=== PATIENT | female | born 1980 | race Caucasian/White ===

== ENCOUNTER 2017-04-16 11:00 | Day surgery (SDC) | payer BC ==
[2017-04-16] MEDS ORDERED: NALOXONE HCL INJ/PF 0.4 MG/1 ML SDV ONE (11:39)
[2017-04-16] MEDS ORDERED: MIDAZOLAM 2 MG/2 ML INJ ONE (11:39)
[2017-04-16] MEDS ORDERED: ONDANSETRON HCL INJ/PF 4 MG/2 ML SDV ONE (11:39)
[2017-04-16] MEDS ORDERED: DIPHENHYDRAMINE HCL 50 MG/ML VIAL ONE (11:39)
[2017-04-16] MEDS ORDERED: EPINEPHRINE INJ 1 MG/10 ML DISP.SYRIN ONE (11:40)
[2017-04-16] MEDS ORDERED: FLUMAZENIL INJ 0.5 MG/5 ML VIAL IV ONE (11:40)
[2017-04-16] MEDS ORDERED: GLUCAGON,HUMAN RECOMB 1 MG INJ ONE (11:40)
[2017-04-16] MEDS: MIDAZOLAM 2 MG/2 ML INJ ONE ×2 (12:17→12:21)
[2017-04-16] MEDS: FENTANYL CITRATE INJ/PF 100 MCG/2 ML AMPUL ONE ×2 (12:19→12:23)
--- NOTE | 2017-04-16 12:33 | Operative Report ---
Operative Report DATE OF SURGERY: 04/16/17 Operative Report: The risks benefits and alternatives of the procedure explained to the patient in detail and informed consent is obtained. A GIF Olympus video scope was inserted into the patient's mouth and hypopharynx, the esophagus is identified intubated and insufflated, the scope was then advanced through the esophagus stomach and duodenum, retroflexion maneuver is done, the esophagus stomach and first and second portions of the duodenum examined PREOPERATIVE DIAGNOSIS: Epigastric pain POSTOPERATIVE DIAGNOSIS: Gastritis, gastric erosion status post biopsy for Helicobacter pylori OPERATION: EGD with biopsy SURGEON: MOHIT MEDEIROS ANESTHESIA: Moderate Sedation - 6 mg of Versed, 100 mcg of fentanyl. TISSUE REMOVED OR ALTERED: Gastric biopsies obtained to rule out Helicobacter pylori COMPLICATIONS: None. ESTIMATED BLOOD LOSS: None. INTRAOPERATIVE FINDINGS: Normal esophagus. Gastritis as described above mainly in the antral region. First and second portions of the duodenum normal. No hiatal hernia seen. No GI bleeding noted PROCEDURE: Patient tolerated procedure well. No immediate postprocedure complications are noted. Patient discharged in good condition. Discharge date 04/16/2017. Discharge diet: Regular. Discharge activity: Regular. 2-3 week follow-up to discuss findings. Patient is instructed to call the office should there be any further problems or questions. We will wait on pathology and treat for Helicobacter pylori if necessary.
[2017-04-16 13:44] VITALS: BP 100/64
== END 2017-04-16 13:35 | disposition home or self-care (01) ==
LOC: END 11:00
PROVIDERS: ATTEND Internal Medicine Gastroenterology
PROC: 0DB68ZX Excision of Stomach, Via Natural or Artificial Opening Endoscopic, Diagnostic (ICD-10-PCS; principal; 2017-04-16 11:30)
DX: K29.50 Unspecified chronic gastritis without bleeding (principal)
CPT/HCPCS: 43239; 88342 ×2; 88305 ×2; J2250; J3010; J0171; J1200; J1610; J2310; J2405; J3490